=== PATIENT | female | born 1965 | race Hispanic/Latino ===

== ENCOUNTER 2018-01-04 14:38 | Outpatient (CLI) | payer OTHER ==
--- NOTE | 2018-01-10 13:24 | MMO ---
BILATERAL MAMMOGRAMS: HISTORY: Screening mammography. COMPARISON: 10/20/2015 FINDINGS: Scattered fibroglandular densities and benign appearing calcifications are apparent. Focal asymmetri es at the axillary tail of each breast are stable. No new dominant mass or suspicious calcifications . The study was evaluated with the assistance of computer aided detection. IMPRESSION: BI-RADS Category 2: Benign findings. Suggest routine followup. POS: [facility]
== END 2018-01-04 14:39 | disposition home or self-care (01) ==
LOC: SCSMAMMO 14:38
PROVIDERS: ATTEND Family Medicine
DX: Z12.31 Encounter for screening mammogram for malignant neoplasm of breast (principal)
CPT/HCPCS: 77067

== ENCOUNTER 2018-08-23 14:14 | Outpatient (CLI) | payer OTHER ==
--- NOTE | 2018-08-23 16:14 | MRI ---
MRI OF THE LEFT SHOULDER: Date: 08-23-18 Provided Clinical History: Left shoulder pain. FINDINGS: There is low grade partial thickness bursal surface tearing involving the anterior distal supraspinat us tendon at the sub plate. The compartments of the rotator cuff appear otherwise intact. The intraarticular segment of the long head biceps tendon demonstrates increased signal intensity on the fluid sensitive sequences. There is abnormal signal present in the region of the superior labrum compatible with SLAP tear. The amount of fluid within the glenohumeral joint appears physiologic. There is a physiologic amount of subacromial subdeltoid bursal fluid. The acromioclavicular joint osteoarthrosis is demonstrated without significant mass effect upon the s ubjacent supraspinatus. Rotator cuff muscular volume appears preserved. No focal concerning regional marrow or muscular signal abnormality is evident. IMPRESSION: 1. Low grade partial thickness bursal surface tear involving the anterior distal supraspinatus tendon at the foot plate. 2. Findings compatible with SLAP tear. 3. Acromioclavicular joint osteoarthrosis. POS: [facility]
== END 2018-08-23 14:15 | disposition home or self-care (01) ==
LOC: BICMRI 14:14
PROVIDERS: ATTEND Physician Assistant Surgical
DX: M75.102 Unspecified rotator cuff tear or rupture of left shoulder, not specified as traumatic (principal); M19.012 Primary osteoarthritis, left shoulder

== ENCOUNTER 2019-06-11 11:17 | Outpatient (CLI) | payer OTHER ==
--- NOTE | 2019-06-11 12:51 | MMO ---
Bilateral MAMMO Bilat Screen [facility]. CLINICAL HISTORY: Patient is 53 years old and is seen for screening. The patient has no family history of breast cancer. The patient has no personal history of cancer. VIEWS: The views performed were: bilateral craniocaudal with tomosynthesis and bilateral mediolateral oblique with tomosynthesis. FILMS COMPARED: The present examination has been compared to prior imaging studies performed at 01/04/2018. This study has been interpreted with the assistance of computer-aided detection. MAMMOGRAM FINDINGS: There are scattered fibroglandular densities. Finding 1: There are stable benign appearing calcifications seen in both breasts. Finding 2: There are stable focal asymmetries seen in both breasts. There are no suspicious masses, suspicious calcifications, or new areas of architectural distortion. IMPRESSION: THERE IS NO MAMMOGRAPHIC EVIDENCE OF MALIGNANCY. A ROUTINE FOLLOW-UP MAMMOGRAM IN 1 YEAR IS RECOMMENDED. THE RESULTS OF THIS EXAM WERE SENT TO THE PATIENT. ACR BI-RADS Category 2 - Benign finding MAMMOGRAPHY NOTE: 1. A negative mammogram report should not delay a biopsy if a dominant of clinically suspicious mass is present. 2. Approximately 10% to 15% of breast cancers are not detected by mammography. 3. Adenosis and dense breasts may obscure an underlying neoplasm. Reported by: ZION CHARLES MD Electonically Signed: [id number]
== END 2019-06-11 11:18 | disposition home or self-care (01) ==
LOC: BICMAMMO 11:17
PROVIDERS: ATTEND Family Medicine
DX: Z12.31 Encounter for screening mammogram for malignant neoplasm of breast (principal)
CPT/HCPCS: 77063; 77067

== ENCOUNTER 2019-07-18 07:10 | Day surgery (SDC) | payer OTHER ==
--- NOTE | 2019-07-18 01:41 | HP ---
HISTORY OF PRESENT ILLNESS: This is a 53-year-old female comes for a colonoscopy for colon cancer screening. The patient has no specific GI symptoms. She has no family history of colon cancer. She is undergoing colonoscopy for colon cancer screening. ALLERGIES: NONE. MEDICAL ILLNESSES: 1. Rheumatoid arthritis. 2. Hypertension. 3. Hyperlipidemia. 4. Diabetes mellitus. 5. Carpal tunnel syndrome release. PHYSICAL EXAMINATION: VITAL SIGNS: Pulse is 70, blood pressure 130/80. HEENT: Conjunctivae clear. CARDIOVASCULAR: First and second heart sounds heard. LUNGS: Clear to auscultation. ABDOMEN: Soft. No organomegaly. No tenderness. No masses. Bowel sounds are normal. ADMITTING DIAGNOSIS: A 53-year-old female comes for a colonoscopy for colon cancer screening. Job ID: [id number]
--- NOTE | 2019-07-18 12:39 | OP ---
DATE OF PROCEDURE: 07/18/2019 PROCEDURE PERFORMED: Colonoscopy. PREOPERATIVE DIAGNOSIS: A 53-year-old female, undergoing colonoscopy for colon cancer screening. POSTOPERATIVE DIAGNOSES: Small hemorrhoids. Otherwise normal colonoscopy. The patient did have some retained fecal residue intermittently in the colon. DESCRIPTION OF PROCEDURE: The patient was placed on her left lateral position and was given sedation by Anesthesia Department. A rectal exam was done before scope was advanced into the rectum. No lesions felt on rectal exam. A Pentax video colonoscope was introduced into the rectum and advanced down the cecum. The mucosa appeared normal throughout the colon with normal vascular pattern. In the appendiceal orifice, ileocecal valve, and cecum, no pathology seen. Withdrawal of scope from the cecum to ascending colon, hepatic flexure, no pathology seen. In the transverse colon, splenic flexure, descending colon, sigmoid colon, no lesion seen. Retroflexion of scope in the rectum showed small hemorrhoids. DISCHARGE PLANNING: This is a 53-year-old female, came for a colonoscopy for colon cancer screening. She underwent colonoscopy and was found to have no pathology except for hemorrhoids. She has occasional sigmoid diverticular disease. DISCHARGE RECOMMENDATIONS: 1. The patient advised to call me if she develops abdominal pain, hematochezia, or fever. 2. In the absence of any above symptoms, she will come back to me in 2 weeks. Recommend repeat colonoscopy in 10 years. Job ID: [id number]
== END 2019-07-18 10:00 | disposition home or self-care (01) ==
LOC: SDC 07:10
PROVIDERS: ATTEND Internal Medicine Gastroenterology
PROC: 0DJD8ZZ Inspection of Lower Intestinal Tract, Via Natural or Artificial Opening Endoscopic (ICD-10-PCS; principal; 2019-07-18)
DX: Z12.11 Encounter for screening for malignant neoplasm of colon (principal); K57.30 Diverticulosis of large intestine without perforation or abscess without bleeding; K64.9 Unspecified hemorrhoids; M06.9 Rheumatoid arthritis, unspecified; I10 Essential (primary) hypertension; E78.5 Hyperlipidemia, unspecified; E11.9 Type 2 diabetes mellitus without complications; Z79.82 Long term (current) use of aspirin; Z79.84 Long term (current) use of oral hypoglycemic drugs; Z79.899 Other long term (current) drug therapy; Z98.890 Other specified postprocedural states

== ENCOUNTER 2020-08-01 15:56 | Outpatient (CLI) | payer OTHER ==
--- NOTE | 2020-08-04 08:19 | MMO ---
Bilateral MAMMO Bilat Screen [facility]. CLINICAL HISTORY: Patient is 54 years old and is seen for screening. The patient has no family history of breast cancer. The patient has no personal history of cancer. VIEWS: The views performed were: bilateral craniocaudal with tomosynthesis and bilateral mediolateral oblique with tomosynthesis. FILMS COMPARED: The present examination has been compared to prior imaging studies performed at on 01/04/2018, and at [facility] on 06/11/2019. This study has been interpreted with the assistance of computer-aided detection. MAMMOGRAM FINDINGS: There are scattered fibroglandular densities. There are benign appearing calcifications seen in both breasts. There are no suspicious masses, suspicious calcifications, or new areas of architectural distortion. IMPRESSION: THERE IS NO MAMMOGRAPHIC EVIDENCE OF MALIGNANCY. A ROUTINE FOLLOW-UP MAMMOGRAM IN 1 YEAR IS RECOMMENDED. THE RESULTS OF THIS EXAM WERE SENT TO THE PATIENT. ACR BI-RADS Category 2 - Benign finding MAMMOGRAPHY NOTE: 1. A negative mammogram report should not delay a biopsy if a dominant of clinically suspicious mass is present. 2. Approximately 10% to 15% of breast cancers are not detected by mammography. 3. Adenosis and dense breasts may obscure an underlying neoplasm. Reported by: JAYASHREE GAONA MD Electonically Signed: [id number]
== END 2020-08-01 15:57 | disposition home or self-care (01) ==
LOC: BICMAMMO 15:56
PROVIDERS: ATTEND Family Medicine
DX: Z12.31 Encounter for screening mammogram for malignant neoplasm of breast (principal)
CPT/HCPCS: 77063; 77067

== ENCOUNTER 2021-11-19 09:44 | Emergency (ER) | payer OTHER, SELFPAY ==
[2021-11-19] MEDS ORDERED: Lidocaine 4% Cream 5 GM TUBE w/ Tegaderm ONE (11:04)
== END 2021-11-19 12:11 | disposition home or self-care (01) ==
LOC: ERS 09:44
DX: S01.01XA Laceration without foreign body of scalp, initial encounter (principal); W01.0XXA Fall on same level from slipping, tripping and stumbling without subsequent striking against object, initial encounter
CPT/HCPCS: 12001

== ENCOUNTER 2021-11-26 17:44 | Emergency (ER) | payer SELFPAY | END 2021-11-26 18:18 | disposition home or self-care (01) | LOC: ERS 17:44 | DX: S01.01XD Laceration without foreign body of scalp, subsequent encounter (principal); E11.9 Type 2 diabetes mellitus without complications; I10 Essential (primary) hypertension; Z79.84 Long term (current) use of oral hypoglycemic drugs ==

== ENCOUNTER 2021-12-04 09:34 | Outpatient (CLI) | payer BC | END 2021-12-04 09:35 | disposition home or self-care (01) | LOC: BICMAMMO 09:34 | PROVIDERS: ATTEND Family Medicine | DX: Z12.31 Encounter for screening mammogram for malignant neoplasm of breast (principal) | CPT/HCPCS: 77063; 77067 ==